=== PATIENT | male | born 1955 | race Caucasian/White ===

== ENCOUNTER 2021-06-24 09:47 | Outpatient (REF) | payer OTHER, SELFPAY ==
--- NOTE | ~2021-06-24 | XR_ITS ---
EXAMINATION: XR CHEST CLINICAL INFORMATION: Smoking history COMPARISON: None TECHNIQUE: 2 views of the chest were obtained. FINDINGS: The cardiac and mediastinal contours are normal. There is a nodule at the right lung base overlying the anterior fifth rib that measures 1 cm. This may represent a nipple shadow. The lungs are otherwise clear. There is no pleural effusion or pneumothorax. Bony structures are unremarkable. XR/XR chest 2V IMPRESSION: Question nipple shadow at the right lung base. Follow-up chest x-ray with nipple markers recommended.
== END 2021-06-24 09:48 | disposition home or self-care (01) ==
LOC: HO.XRAY 09:47
PROVIDERS: PCP Pediatrics; Visit Provider Pediatrics
DX: F17.290 Nicotine dependence, other tobacco product, uncomplicated (principal)
CPT/HCPCS: 71046

== ENCOUNTER 2021-07-29 10:07 | Outpatient (REF) | payer OTHER, SELFPAY ==
--- NOTE | ~2021-07-29 | XR_ITS ---
EXAMINATION: XR CHEST CLINICAL INFORMATION: Nicotine dependence. Ptosis of left eyelid. COMPARISON: Previous chest x-ray 06/24/2021 TECHNIQUE: 2 views of the chest were obtained. FINDINGS: The cardiac and mediastinal contours are normal. The lungs are clear. No pulmonary nodule is. There is no pleural effusion or pneumothorax. There are old or healing posterior right eighth and ninth rib fractures. Bony structures are otherwise unremarkable. XR/XR chest 2V IMPRESSION: No pulmonary nodule seen.
== END 2021-07-29 10:08 | disposition home or self-care (01) ==
LOC: HO.XRAY 10:07
PROVIDERS: PCP Pediatrics; Visit Provider Pediatrics
DX: F17.290 Nicotine dependence, other tobacco product, uncomplicated (principal); H02.402 Unspecified ptosis of left eyelid
CPT/HCPCS: 71046

== ENCOUNTER 2023-02-09 13:41 | Outpatient (REF) | payer OTHER, SELFPAY | END 2023-02-09 13:42 | disposition home or self-care (01) | LOC: HO.CHCLNP 13:41 | PROVIDERS: Visit Provider Pediatrics | DX: E11.9 Type 2 diabetes mellitus without complications (principal) | CPT/HCPCS: 81001 ==

== ENCOUNTER → 2023-08-01 09:35 | Outpatient (BNVA) | payer OTHER, SELFPAY | PROVIDERS: PCP Pediatrics; Visit Provider Physician Assistant ==

== ENCOUNTER 2024-04-17 14:02 | Outpatient (REF) | payer OTHER, SELFPAY ==
--- OUTSIDE RECORDS SUMMARY | 2024-04-17 14:08 | XMS_ITS | Continuity of Care Document ---
Author Organization [facility] As [facility] Address [address] [place] [address] [address] [place] [address]- Care Team Providers Care Mail Caller Name Role Phone Not on Staff, PCP Primary Care Physician Unavail able [place] [facility] [place] - 03/30/[address] [place] [address]- Attending Physician: Jocelyn Luciano Admitting Physician: Jocelyn Luciano Referring Physician: AdmtrJocelyn Encounter Type: Triage Allergies, Adverse Reactions, Alerts No Known Medication Allergies Medications All Day Allergy 10 mg oral tablet 1 tablet = 10 mg, By Mouth, Daily, # 30 tablet, 0 Refills, Maintenance, 01/25/24 1:44:00 AM EDT, Tablet, Partial fill upon patient request if the prescription is for a schedule II opioid drug. Start Date: 01/25/24 Status: Ordered Quantity: 30.0 Unit: tablet Repeat number: 1 Aspirin Low Dose 81 mg oral delayed release tablet 1 tablet = 81 mg, By Mouth, Daily, # 30 tablet, 0 Refills, Maintenance, 01/25/24 1:45:00 AM EDT, EC Tablet, Partial fill upon patient request if the prescription is for a schedule II opioid drug. Start Date: 01/25/24 Status: Ordered Quantity: 30.0 Unit: tablet Repeat number: 1 atorvastatin 80 mg oral tablet 1 tablet = 80 mg, By Mouth, Daily, # 90 tablet, 0 Refills, Maintenance, 01/25/24 1:44:00 AM EDT, Tablet, Partial fill upon patient request if the prescription is for a schedule II opioid drug. Start Date: 01/25/24 Status: Ordered Quantity: 90.0 Unit: tablet Repeat number: 1 D3 50 mcg (2000 intl units) oral capsule 0 Refills, Maintenance, 01/25/24 1:44:00 AM EDT, Partial fill upon patient request if the prescription is for a schedule II opioid drug. Start Date: 01/25/24 Status: Ordered Repeat number: 1 docusate-senna 50 mg-187 mg oral tablet 2 tablet, By Mouth, Daily at bedtime, # 30 tablet, 0 Refills, Maintenance, 01/25/24 1:45:00 AM EDT, Tablet, Partial fill upon patient request if the prescription is for a schedule II opioid drug. Start Date: 01/25/24 Status: Ordered Quantity: 30.0 Unit: tablet Repeat number: 1 gabapentin 300 mg oral capsule 300 mg, 1, capsule, By Mouth, 3 times a day, # 270 capsule, Refills 0, Maintenance, 01/25/24 1:44:00AM EDT, Partial fill upon patient request if the prescription is for a schedule II opioid drug. Start Date: 01/25/24 Status: Ordered Quantity: 270.0 Unit: capsule Repeat number: 1 glipiZIDE 10 mg oral tablet 1 tablet = 10 mg, By Mouth, Daily, # 30 tablet, 0 Refills, Maintenance, 01/25/24 1:44:00 AM EDT, Tablet, Partial fill upon patient request if the prescription is for a schedule II opioid drug. Start Date: 01/25/24 Status: Ordered Quantity: 30.0 Unit: tablet Repeat number: 1 lisinopril 5 mg oral tablet 5 mg, 1, tablet, By Mouth, Daily, # 30 tablet, Refills 0, Maintenance, 01/25/24 1:44:00 AM EDT, Partial fill upon patient request if the prescription is for a schedule II opioid drug. Start Date: 01/25/24 Status: Ordered Quantity: 30.0 Unit: tablet Repeat number: 1 metFORMIN 1000 mg oral tablet 1 tablet = 1,000 mg, By Mouth, 2 times a day, # 180 tablet, 0 Refills, Maintenance, 01/25/24 1:44:00AM EDT, Tablet, Partial fill upon patient request if the prescription is for a schedule II opioid drug. Start Date: 01/25/24 Status: Ordered Quantity: 180.0 Unit: tablet Repeat number: 1 omeprazole 20 mg oral enteric coated capsule 1 capsule = 20 mg, By Mouth, Daily, # 30 capsule, 0 Refills, Maintenance, 01/25/24 1:45:00 AM EDT, EC Capsule, Partial fill upon patient request if the prescription is for a schedule II opioid drug. Start Date: 01/25/24 Status: Ordered Quantity: 30.0 Unit: capsule Repeat number: 1 Physical Therapy Physical Therapy, See Instructions, # 1 each, Refills 0, Tot. Refills 0, Maintenance, Physical Therapy, 02/29/24 1:33:00 PM EDT, Supply Start Date: 02/29/24 Status: Ordered Quantity: 1.0 Unit: each Repeat number: 1 Physical Therapy Physical Therapy, See Instructions, # 1 each, Refills 0, Tot. Refills 0, Maintenance, Physical Therapy, 02/29/24 1:34:00 PM EDT, Supply Start Date: 02/29/24 Status: Ordered Quantity: 1.0 Unit: each Repeat number: 1 see instructions see instructions, See Instructions, # 1 each, Refills 0, Tot. Refills 0, Maintenance, Outpatient physical therapy, 01/25/24 2:16:00 PM EDT, Supply Start Date: 01/25/24 Status: Ordered Quantity: 1.0 Unit: each Repeat number: 1 Trulicity Pen 0.75 mg/0.5 mL subcutaneous solution 0.5 mL = 0.75 mg, Subcutaneous Injection, Every week, 0 Refills, Maintenance, 01/25/24 1:45:00 AM EDT, Solution, Partial fill upon patient request if the prescription is for a schedule II opioid drug. Start Date: 01/25/24 Status: Ordered Repeat number: 1 Vitamin B-12 1000 mcg oral tablet 1,000 mcg, 1, tablet, By Mouth, Daily, # 30 tablet, Refills 0, Maintenance, 01/25/24 1:45:00 AM EDT,Partial fill upon patient request if the prescription is for a schedule II opioid drug. Start Date: 01/25/24 Status: Ordered Quantity: 30.0 Unit: tablet Repeat number: 1 Patient Care team information Care Team Personnel Name: Not on Staff, PCP Position: [facility] Physician (General Medicine) Member Role: PCP Name: Elzbieta Johns RN Position: [facility] RN Member Role: Primary Care Nurse Care Team Related Persons Name: JOSÉ WILDER Insurance Providers Guarantor name: [employer] Health Plan Information #: 1 Payer: [employer] Member Number: NA Policy Number: NA Group Number: NA Health Plan Information #: 2 Payer: [facility] Member Number: NA Policy Number: NA Group Number: NA
[2024-04-17 18:02] LABS: MANUAL DIFF FLAG NO
[2024-04-17 18:19] LABS: Basophils Absolute Auto 0.1 X10*3/uL (0.0-0.2); Basophils Percent Auto 0.9 % (0-2); Eosinophils Absolute Auto 0.1 X10*3/uL (0.0-0.4); Hemoglobin 13.5 g/dl (14.0-18.0); Imm Gran Abs Auto 0.02 X10*3/uL (0.00-0.03); Imm Gran Pct Auto 0.3 % (0.0-0.4); Lymphocytes Absolute Auto 1.8 X10*3/uL (1.2-4.9); Lymphocytes Percent Auto 30.4 % (20-40); Mean Corpuscular HGB Conc 32.9 g/dl (31.0-36.0); Mean Corpuscular Hemoglobin 28.2 pg (27.0-33.0); Mean Corpuscular Volume 85.6 fL (80.0-98.0); Mean Platelet Volume 11.4 fL (9.4-12.4); Monocytes Absolute Auto 0.6 X10*3/uL (0.1-1.2); Monocytes Percent Auto 10.9 % (2-11); Neutrophils Absolute Auto 3.3 x10*3/uL (2.0-8.3); Neutrophils Percent Auto 56.5 % (45-73); Platelet Count 313 X10*3/uL (160-400); Red Blood Count 4.79 X10*6/uL (4.60-5.80); Red Cell Distribution Width 15.4 % (11.0-16.0); White Blood Count 5.9 X10*3/uL (4.8-10.8)
[2024-04-17 18:43] LABS: Alanine Aminotransferase 21 U/L (0-40); Albumin Level 4.1 g/dL (3.5-5.0); Alkaline Phosphatase 72 U/L (39-117); Anion Gap 13 (12-20); Aspartate Amino Transferase 22 U/L (5-37); Bilirubin Direct 0.2 mg/dL (0.0-0.5); Bilirubin Total 0.5 mg/dL (0.0-1.0); Blood Urea Nitrogen 20 mg/dL (9-16); Calcium 9.7 mg/dL (8.4-10.2); Carbon Dioxide 24 mmol/L (22-29); Chloride 107 mmol/L (96-108); Cholesterol 138 mg/dL (<200); Estimated Glomerular Filt Rate > 60; Glucose Fasting 182 mg/dL (60-99); HDL Cholesterol 34 mg/dL (>40); LDL Cholesterol Calculated 77 mg/dL (<100); Potassium 4.2 mmol/L (3.3-5.1); Sodium 140 mmol/L (135-145); Total Protein 7.1 g/dL (6.5-8.0); Triglycerides 137 mg/dL (<150)
[2024-04-17 18:57] LABS: TSH reflex Free T4 2.91 uIU/mL (0.32-4.0)
[2024-04-17 19:03] LABS: Folate 6.4 ng/mL (> or = 4.0); Prostate Specific Antigen Scr 0.93 ng/mL (<0.05-4.0); Vitamin B12 904 pg/mL (200-900)
[2024-04-18 09:23] LABS: HBc Num1 0.09 S/CO (0.00-0.79); HBsAGNum1 0.43 S/CO (0.00-0.99); HIV AB/AG Nonreactive (Nonreactive); HIV Num 1 0.06 S/CO (0.00-0.99); Hepatitis A Antibody IgM 0.22 Index (0-0.79); Hepatitis B Core Antibody Nonreactive (Nonreactive); Hepatitis B Surface Antigen Negative (Negative); ~HepC Num1 0.14 S/CO (0.00-0.79); ~Hepatitis A Antibody IgM Nonreactive (Nonreactive); ~Hepatitis B Surface Antibody NONREACTIVE (Nonreactive); ~Hepatitis C Antibody Nonreactive (Nonreactive)
[2024-04-18 21:13] LABS: RPR Rapid Plasma Reagin NON-REACTIVE (NON-REACTIVE)
== END 2024-04-17 14:03 | disposition home or self-care (01) ==
LOC: HO.CHCLDS 14:02
PROVIDERS: Visit Provider Pediatrics
DX: Z00.00 Encounter for general adult medical examination without abnormal findings (principal); E11.9 Type 2 diabetes mellitus without complications; F17.200 Nicotine dependence, unspecified, uncomplicated; F70 Mild intellectual disabilities; E78.2 Mixed hyperlipidemia; Z12.5 Encounter for screening for malignant neoplasm of prostate
CPT/HCPCS: 36415; 80048; 80061; 80076; 82607; 82746; 84153; 84443; 85025; 86592; 86704; 86706; 86709; 86803; 87340; 87389